=== PATIENT | male | born 1970 | race Caucasian/White ===

== ENCOUNTER → 2021-10-06 07:21 | Outpatient (CLI) | payer OTHER, SELFPAY ==
[2021-10-06 08:50] LABS: Add Manual Diff / Slide Review NO; Basophils Absolute Auto 0 /uL (0-100); Basophils Percent Auto 0.9 % (0-2); Eosinophils Absolute Auto 100 /uL (0-450); Eosinophils Percent Auto 3.4 % (2-4); Hematocrit 42.1 % (41-53); Hemoglobin 14.7 g/dL (13.5-17.5); Lymphocytes Absolute Auto 1400 /uL (1100-4500); Mean Corpuscular HGB Conc 34.8 % (30-36); Mean Corpuscular Hemoglobin 32.6 PG (26-34); Mean Corpuscular Volume 93.5 fL (80-100); Monocytes Absolute Auto 400 /uL (0-900); Monocytes Percent Auto 10.9 % (3-14); Neutrophils Absolute Auto 1400 /uL (1500-7000); Neutrophils Percent Auto 41.8 % (50-75); Platelet Count 199 X10^3/uL (150-400); Red Cell Distribution Width 12.9 % (11.6-14.8); White Blood Cell Count 3.3 X10^3/uL (4.5-11.0)
[2021-10-06 09:30] LABS: Alanine Aminotransferase 27 IU/L (<50); Albumin 4.1 g/dL (3.5-5.0); Albumin Globulin Ratio 1.5 (1.0-2.8); Alkaline Phosphatase 58 U/L (38-126); Aspartate Aminotransferase 37 IU/L (17-59); BUN Creatinine Ratio 24.6 (6-22); Bilirubin Total 0.9 mg/dL (0.2-1.3); Blood Urea Nitrogen 16 mg/dL (9-20); Calcium 8.7 mg/dL (8.4-10.2); Carbon Dioxide 30 mmol/L (22-32); Chloride 102 mmol/L (98-107); Cholesterol 170 mg/dL (140-199); Estimated Glomerular Filt Rate > 60 mL/min (>60); Globulin 2.8 g/dL (1.7-4.1); Glucose 83 mg/dL (70-100); HDL Cholesterol 47 mg/dL (40-60); HEMOLYSIS < 15 (0-50); LDL Cholesterol Calculated 107 mg/dL (<100); Potassium 4.6 mmol/L (3.4-5.1); Sodium 137 mmol/L (137-145); Total Protein 6.9 g/dL (6.3-8.2); Triglycerides 82 mg/dL (35-150)
== END ==
PROVIDERS: Family Provider Family Medicine; PCP Family Medicine; Referring Provider Family Medicine; Visit Provider Family Medicine
DX: E78.00 Pure hypercholesterolemia, unspecified (principal)
CPT/HCPCS: 36415; 80053; 80061; 85025

== ENCOUNTER → 2022-11-27 07:58 | Outpatient (CLI) | payer OTHER, SELFPAY ==
[2022-11-27 10:34] LABS: BUN Creatinine Ratio 17.7 (6-22); Blood Urea Nitrogen 11 mg/dL (9-20); Calcium 9.3 mg/dL (8.4-10.2); Carbon Dioxide 30 mmol/L (22-32); Chloride 98 mmol/L (98-107); Cholesterol 181 mg/dL (140-199); Estimated Glomerular Filt Rate > 60 mL/min (>60); Glucose 83 mg/dL (70-100); HDL Cholesterol 51 mg/dL (40-60); HEMOLYSIS < 15 (0-50); LDL Cholesterol Calculated 113 mg/dL (<100); Potassium 4.4 mmol/L (3.4-5.1); Sodium 135 mmol/L (137-145); Triglycerides 86 mg/dL (35-150)
== END ==
PROVIDERS: Family Provider Family Medicine; PCP Family Medicine; Referring Provider Family Medicine; Visit Provider Family Medicine
DX: E78.00 Pure hypercholesterolemia, unspecified (principal)
CPT/HCPCS: 36415; 80048; 80061

== ENCOUNTER 2022-12-02 18:24 | Emergency (ER) | payer OTHER, SELFPAY ==
[2022-12-02 18:34] VITALS: BP 156/89; PULSE 101; RESP 20; TEMP 37.4; O2SAT 100; BMI 22.4
--- NOTE | 2022-12-02 18:42 | DI.RAD.S_ITS ---
PROCEDURE: XR CHEST 2V INDICATIONS: cough x 7days TECHNIQUE: 2 views of the chest were acquired. COMPARISON: None. FINDINGS: Surgical changes and devices: Lungs and pleura: Lungs are abnormal with bibasilar posterior pneumonia, right slightly greater than left. No pleural effusions or pneumothorax. Mediastinum: Mediastinal contours are normal. Heart size is normal. Bones and chest wall: No suspicious bony abnormalities. Soft tissues appear unremarkable. IMPRESSION: Posterior lung base pneumonia bilaterally, right greater than left. Dictated by: Azael Chisholm M.D. on 12/02/2022 at 20:02 Approved by: Azael Chisholm M.D. on 12/02/2022 at 20:03
--- NOTE | 2022-12-02 18:53 | ED.GENADULT ---
HPI - General Adult General Chief complaint: Upper Respiratory Symptoms Stated complaint: wic sent/wonky heart Time Seen by Provider: 12/02/22 18:35 Source: patient Mode of arrival: Ambulatory History of Present Illness HPI narrative: 52-year-old male who for the past 7-10 days has had a cough and body aches and other respiratory symptoms. Went to the walk-in clinic. During his evaluation there was some concern about an irregular heart rhythm. Patient denies any chest pain. No abdominal pain. Was brought to the emergency department for further evaluation. Related Data Previous Rx's Medication Instructions Recorded benzonatate 100 mg capsule 100 mg PO BID PRN cough #20 caps 11/29/22 fluticasone propionate 50 1 spray intranasal Q12H #16 grams 11/29/22 mcg/actuation nasal spray,suspension (Flonase Allergy Relief) ipratropium bromide 42 mcg (0.06 2 spray intranasal TID 4 days #15 11/29/22 %) nasal spray mL azithromycin 250 mg tablet 250 mg PO DAILY 4 days #4 tabs 12/02/22 Allergies Allergy/AdvReac Type Severity Reaction Status Date / Time No Known Drug Allergies Allergy Verified 12/02/22 18:38 Review of Systems Constitutional Constitutional: Reports system reviewed and no additional complaints, except as documented Cardiovascular Cardiovascular: Reports system reviewed and no additional complaints, except as documented Respiratory Respiratory: Reports system reviewed and no additional complaints, except as documented Gastrointestinal Gastrointestinal: Reports system reviewed and no additional complaints, except as documented Integumentary/Breasts Skin/Breast: Reports system reviewed and no additional complaints, except as documented Neurologic Neurologic: Reports system reviewed and no additional complaints, except as documented Patient History Medical History Physical exam, annual Actinic keratosis due to exposure to sunlight Inflamed skin tag Wart of hand Verruca plantaris Elevated LDL cholesterol level Chronic pain of both knees Family History (Updated 07/06/21 @ 10:07 by Shiv Del Angel DO) Father Stroke Hyperlipidemia Mother No problems noted. Sister Cancer Social History Smoking Status: Never smoker Smoking Status: Never smoker alcohol intake frequency: a few times a month Substance Use Type: does not use Exam Initial Vital Signs Initial Vital Signs: Vital Signs Temperature 99.4 F 12/02/22 18:34 Pulse Rate 101 H 12/02/22 18:34 Respiratory Rate 20 12/02/22 18:34 Blood Pressure 156/89 H 12/02/22 18:34 Pulse Oximetry 100 12/02/22 18:34 Oxygen Delivery Method Room Air 12/02/22 18:34 Const General: cooperative, comfortable and No ill appearing HENMT Head: normal to inspection and normocephalic Resp Effort & Inspection: normal respiratory effort Auscultation: clear to auscultation bilaterally Cardio Rate: regular rate Rhythm: regular rhythm GI Inspection: normal to inspection and non-distended Palpation: soft Skin General: no rashes or lesions noted Neuro General: patient alert, patient awake and moves all extremities Course Orders Ordered: ED Orders 12/02/22 18:35 Covid-19 + FLU A/B + RSV - PCR Stat 12/02/22 18:42 XR chest 2V Stat 12/02/22 18:50 EKG-12 Lead Stat Discontinued Medications Azithromycin (Azithromycin 250 Mg Tablet) 500 mg PO NOW ONE Stop: 12/02/22 20:10 Last Admin: 12/02/22 20:13 Dose: 500 mg Documented By: ELVIN Vital Signs Vital signs: Vital Signs - 8 hr 12/02/22 18:34 12/02/22 19:33 12/02/22 20:00 Temperature 99.4 F Pulse Rate 101 H 99 H 101 H Respiratory Rate 20 26 H 27 H Blood Pressure 156/89 H Pulse Oximetry 100 97 96 Oxygen Delivery Method Room Air 12/02/22 20:10 12/02/22 20:10 Temperature 99 F Pulse Rate 100 H Respiratory Rate 21 Blood Pressure 140/79 Pulse Oximetry 98 Oxygen Delivery Method Room Air Medical Decision Making Lab Data Lab results reviewed: Yes I reviewed the patient's lab results. Labs: Lab Results 12/02/22 Range/Units 18:35 SARS-CoV-2 (PCR) Negative (Negative) Influenza A (RT-PCR) Flu a negative (NEGATIVE) Influenza B (RT-PCR) Flu b negative (NEGATIVE) RSV (PCR) Negative (Negative) Imaging Data Chest x-ray: Radiologist's Impression: PROCEDURE: XR CHEST 2V INDICATIONS: cough x 7days TECHNIQUE: 2 views of the chest were acquired. COMPARISON: None. FINDINGS: Surgical changes and devices: Lungs and pleura: Lungs are abnormal with bibasilar posterior pneumonia, right slightly greater than left. No pleural effusions or pneumothorax. Mediastinum: Mediastinal contours are normal. Heart size is normal. Bones and chest wall: No suspicious bony abnormalities. Soft tissues appear unremarkable. IMPRESSION: Posterior lung base pneumonia bilaterally, right greater than left. ECG Data Interpretation: Sinus rhythm Ventricular rate 96 Normal axis Normal QRS Normal QTC No ST T wave changes MDM Narrative Medical decision making narrative: Patient has had sinus rhythm and not tachycardic since arrival here to the ER. His chest x-ray concerning for pneumonia in this does fit his clinical presentation. We will treat him with antibiotics. First dose was given here. Prescription was sent to the pharmacy of his choice. Not hypoxic. No indication for admission to the hospital. He was given return precautions. He expressed understanding and agreement. Discharge Plan Departure Patient Disposition: Home Clinical Impression: Pneumonia Instructions: DI for Pneumonia -- Adult Activity Restrictions/Additional Instructions: You can take Tylenol/ibuprofen for any body aches or fevers. Your next dose of antibiotics will be 12/03/2022. Return to the emergency department for new or worsening symptoms. Prescriptions: New azithromycin 250 mg tablet 250 mg PO DAILY 4 Days Qty: 4 0RF Rx Instructions: start on day 2 of therapy No Action ipratropium bromide 42 mcg (0.06 %) spray,non-aerosol 2 spray intranasal TID 4 Days Qty: 15 0RF Rx Instructions: administer into each nostril fluticasone propionate [Flonase Allergy Relief] 50 mcg/actuation spray,suspension 1 spray intranasal Q12H Qty: 16 0RF Rx Instructions: administer into each nostril benzonatate 100 mg capsule 100 mg PO BID PRN (Reason: cough) Qty: 20 0RF Referrals: Shiv Del Angel DO [Primary Care Provider] - Stand Alone Forms: Patient Portal/API
[2022-12-02 19:26] LABS: Influenza A - CEPHEID Flu A NEGATIVE (NEGATIVE); Influenza B - CEPHEID Flu B NEGATIVE (NEGATIVE); Respiratory Syncytial Virus Negative (Negative)
[2022-12-02 19:29] LABS: COVID-19 CEPHEID 4-PLEX PCR Negative (Negative)
[2022-12-02 19:33] VITALS: PULSE 99; RESP 26; O2SAT 97
[2022-12-02 20:00] VITALS: PULSE 101; RESP 27; O2SAT 96
[2022-12-02 20:10] VITALS: BP 140/79; PULSE 100; RESP 21; TEMP 37.2; O2SAT 98
[2022-12-02] MEDS: AZITHROMYCIN 250 MG TABLET 500 MG PO (20:13)
== END 2022-12-02 20:18 | disposition home or self-care (01) ==
PROVIDERS: Emergency Provider Emergency Medicine; Family Provider Family Medicine; PCP Family Medicine
DX: J18.9 Pneumonia, unspecified organism (principal); R07.9 Chest pain, unspecified; Z20.822 Contact with and (suspected) exposure to COVID-19
CPT/HCPCS: 0241U; 71046; 93005; 93010; 99283; 99284

== ENCOUNTER 2022-12-09 10:12 | Emergency (ER) | payer OTHER, SELFPAY ==
[2022-12-09] VITALS (8 sets, daily range): BP systolic 116–141; BP diastolic 68; PULSE 59–117; RESP 24; TEMP 37–39.9; O2SAT 95–98
--- NOTE | 2022-12-09 10:41 | ED_ITS ---
HPI - URI/Sore Throat General Chief Complaint: Fever Stated Complaint: sent by [facility] poss pneumnia Time Seen by Provider: 12/09/22 10:41 History of Present Illness HPI Narrative: Patient 52-year-old male without significant past medical history presenting for the 2nd time this week to the ED he has been seen twice a day walk-in clinic diagnosed with pneumonia on December 02 started on a Z-Robinson. He continues to have fever at home 101 he has a current temperature here of 103.8. He is staying hydrated significant decrease in appetite. Last dose of Tylenol or ibuprofen was at 1:00 a.m.. Went to the walk-in clinic he was redirected here for elevated heart rate. He reports that whenever he takes a deep breath he starts coughing can not stop. Frequently he coughs so hard he vomits. He was given cough syrup and other supportive measures. Related Data Previous Rx's Medication Instructions Recorded benzonatate 100 mg capsule 100 mg PO BID PRN cough #20 caps 11/29/22 fluticasone propionate 50 1 spray intranasal Q12H #16 grams 11/29/22 mcg/actuation nasal spray,suspension (Flonase Allergy Relief) codeine 10 mg-guaifenesin 100 mg/5 10 ml PO Q4-6H PRN cough #120 mL 12/06/22 mL oral liquid hydrocodone-homatropine 5 mg-1.5 5 ml PO Q6H PRN cough #100 mL 12/09/22 mg/5 mL (5 mL) oral syrup levofloxacin 750 mg tablet 750 mg PO DAILY 5 days #5 tabs 12/09/22 prednisone 20 mg tablet 40 mg (2 x 20 mg) PO DAILY #10 tabs 12/09/22 Allergies Allergy/AdvReac Type Severity Reaction Status Date / Time No Known Drug Allergies Allergy Verified 12/06/22 11:13 Review of Systems Review of Systems ROS Unobtainable: All systems reviewed & are unremarkable except as noted in HPI and below Patient History Medical History Physical exam, annual Actinic keratosis due to exposure to sunlight Inflamed skin tag Wart of hand Verruca plantaris Elevated LDL cholesterol level Chronic pain of both knees Family History (Updated 07/06/21 @ 10:07 by Shiv Del Angel DO) Father Stroke Hyperlipidemia Mother No problems noted. Sister Cancer Social History Smoking Status: Never smoker Smoking Status: Never smoker alcohol intake frequency: a few times a month Substance Use Type: does not use Exam Initial Vital Signs Initial Vital Signs: Vital Signs Temperature 103.8 F H 12/09/22 10:20 Pulse Rate 117 H 12/09/22 10:20 Respiratory Rate 24 12/09/22 10:20 Blood Pressure 141/68 H 12/09/22 10:20 Pulse Oximetry 97 12/09/22 10:20 Oxygen Delivery Method Room Air 12/09/22 10:20 GENERAL: Alert 52-year-old male appears younger than stated age HEENT: Head atraumatic,EOMI, pupils reactive, face symmetric, moist mucous membranes CARDIOVASCULAR: Tachycardic regular no murmurs RESPIRATORY: Crackles at bases significant wheezing no conversational dyspnea no tachypnea ABDOMEN: Soft, nontender. Normoactive bowel sounds all 4 quadrants. No guarding or rebound. EXTREMITIES: Normal range of motion, no clubbing or edema. Neurovascularly intact NEUROLOGICAL: Alert and oriented x4.Normal gait and speech. SKIN: Warm, dry, no laceration, no petechiae, no rashes or lesions. Course Orders Ordered: ED Orders 12/09/22 10:37 Complete Blood Count AUTO DIFF Stat Comprehensive Metabolic Panel Stat Lactate (Lactic Acid) Stat Lipase Stat PTT Partial Thromboplastin Hill Stat Procalcitonin Stat Prothrombin Time INR Stat Respiratory Panel (Film Array) Stat Troponin & CK Cardiac Panel Stat 12/09/22 10:41 XR chest 1V Stat EKG-12 Lead Stat RT Consult Eval and Treat NOW 12/09/22 11:00 Blood Culture Stat Discontinued Medications Acetaminophen (Acetaminophen 325 Mg Tablet) 975 mg PO NOW ONE Stop: 12/09/22 10:44 Last Admin: 12/09/22 11:03 Dose: 975 mg Documented By: JCARLOS Sodium Chloride (Normal Saline 0.9%) 1,000 mls @ 1,000 mls/hr IV BOLUS ONE Stop: 12/09/22 11:40 Last Infusion: 12/09/22 12:21 Dose: Infused Documented By: Admin: 12/09/22 11:04 Dose: 1,000 mls/hr Documented By: JCARLOS Levofloxacin (Levaquin) 750 mg in 150 mls @ 100 mls/hr IV NOW ONE Stop: 12/09/22 12:23 Last Infusion: 12/09/22 12:39 Dose: Infused Documented By: Admin: 12/09/22 11:03 Dose: 100 mls/hr Documented By: JCARLOS Ketorolac Tromethamine (Ketorolac 30 Mg/Ml Vial) 15 mg IV NOW ONE Stop: 12/09/22 10:44 Last Admin: 12/09/22 11:03 Dose: 15 mg Documented By: JCARLOS Methylprednisolone (Methylprednisolone 125 Mg/2 Ml Vial) 125 mg IV NOW ONE Stop: 12/09/22 12:10 Last Admin: 12/09/22 12:39 Dose: 125 mg Documented By: KULWINDER Ondansetron HCl (Ondansetron 4 Mg/2 Ml Inj) 4 mg IV NOW PRN PRN Reason: Nausea And Vomiting Last Admin: 12/09/22 11:06 Dose: 4 mg Documented By: JCARLOS Ondansetron HCl (Ondansetron 4 Mg Odt) 4 mg SL NOW PRN PRN Reason: Nausea And Vomiting Vital Signs Vital signs: Vital Signs - 8 hr 12/09/22 10:20 12/09/22 11:00 12/09/22 11:30 Temperature 103.8 F H Pulse Rate 117 H 107 H 105 H Respiratory Rate 24 Blood Pressure 141/68 H Pulse Oximetry 97 98 96 Oxygen Delivery Method Room Air 12/09/22 12:00 12/09/22 12:22 12/09/22 12:22 Temperature 100.7 F H 100.7 F H Pulse Rate 59 L Respiratory Rate Blood Pressure Pulse Oximetry 96 Oxygen Delivery Method 12/09/22 12:30 12/09/22 12:44 12/09/22 12:45 Temperature Pulse Rate 91 H 90 Respiratory Rate Blood Pressure 116/68 Pulse Oximetry 96 95 Oxygen Delivery Method 12/09/22 12:45 Temperature 98.6 F Pulse Rate 90 Respiratory Rate Blood Pressure Pulse Oximetry 95 Oxygen Delivery Method Room Air MDM - URI/Sore Throat Lab Data 12/09/22 10:37 12/09/22 10:37 Labs: Lab Results 12/09/22 Range/Units 10:37 WBC 16.4 H (4.5-11.0) X10^3/uL RBC 4.56 (4.5-5.9) X10^6/uL Hgb 14.6 (13.5-17.5) g/dL Hct 42.6 (41-53) % MCV 93.4 (80-100) fL MCH 32.0 (26-34) PG MCHC 34.2 (30-36) % RDW 12.7 (11.6-14.8) % Plt Count 339 (150-400) X10^3/uL Neut % (Auto) 89.8 H (50-75) % Lymph % (Auto) 5.4 L (25-40) % Emanuel % (Auto) 4.2 (3-14) % Eos % (Auto) 0.2 L (2-4) % Baso % (Auto) 0.4 (0-2) % Neut # (Auto) 14661 H (7379-6144) /uL Lymph # (Auto) 900 L (2346-0755) /uL Emanuel # (Auto) 700 (0-900) /uL Eos # (Auto) 0 (0-450) /uL Baso # (Auto) 100 (0-100) /uL PT 17.0 H (10.1-12.7) SECONDS INR 1.5 H (0.9-1.3) APTT 32 (26-36) SECONDS Sodium 135 L (137-145) mmol/L Potassium 4.2 (3.4-5.1) mmol/L Chloride 97 L (98-107) mmol/L Carbon Dioxide 28 (22-32) mmol/L BUN 16 (9-20) mg/dL Creatinine 0.60 L (0.66-1.25) mg/dL Estimated GFR > 60 (>60) mL/min BUN/Creatinine Ratio 26.7 H (6-22) Glucose 103 H (70-100) mg/dL Lactate 1.3 (0.7-2.1) mmol/L Calcium 9.6 (8.4-10.2) mg/dL Total Bilirubin 1.0 (0.2-1.3) mg/dL AST 32 (17-59) IU/L ALT 37 (<50) IU/L Alkaline Phosphatase 100 (38-126) U/L Total Creatine Kinase 78 (55-170) U/L Troponin I < 0.012 (0.01-0.034) ng/mL Total Protein 8.4 H (6.3-8.2) g/dL Albumin 4.2 (3.5-5.0) g/dL Globulin 4.2 H (1.7-4.1) g/dL Albumin/Globulin Ratio 1.0 (1.0-2.8) Lipase 29 (23-300) U/L Procalcitonin 0.08 (<0.5) ng/mL Chlamy pneumoniae PCR Not detected (Not Detect) Adenovirus (PCR) Not detected (Not Detect) B.parapertussis DNA PCR Not detected (Not Detecte) Coronavirus OC43 (PCR) Not detected (Not Detect) Coronavirus HKU1 (PCR) Not detected (Not Detect) Coronavirus 229E (PCR) Not detected (Not Detect) SARS-CoV-2 (PCR) Not detected (Not Detecte) Coronavirus NL63 (PCR) Not detected (Not Detect) Human Metapneumovir PCR Not detected (Not Detect) Influenza Type A (PCR) Not detected (Not Detect) Influenza Type B (PCR) Not detected (Not Detect) M. pneumoniae (PCR) Not detected (Not Detect) Parainfluenza 1 (PCR) Not detected (Not Detect) Parainfluenza 2 (PCR) Not detected (Not Detect) Parainfluenza 3 (PCR) Not detected (Not Detect) Parainfluenza 4 (PCR) Not detected (Not Detect) RSV (PCR) Not detected (Not Detect) Entero/Rhino (PCR) Detected H (Not Detect) Imaging Data Chest x-ray: Radiologist's Impression: PROCEDURE: XR CHEST 1V INDICATIONS: suspected sepsis TECHNIQUE: One view of the chest was acquired. COMPARISON: [facility], , XR CHEST 2V, 12/02/2022, 18:54. FINDINGS: Surgical changes and devices: None. Lungs and pleura: There is moderate airspace opacity at the right lung base. No pleural effusions or pneumothorax. Mediastinum: Mediastinal contours appear normal. Heart size is normal. Bones and chest wall: No suspicious bony lesions. Overlying soft tissues appear unremarkable. IMPRESSION: Right lung base pneumonia. Continued plain film surveillance is recommended to ensure resolution, and to exclude underlying or central malignancy. Dictated by: Madina Smart M.D. on 12/09/2022 at 11:16 ECG Data Interpretation: Sinus tachycardia rate 111 AK interval 148 QRS [address] changes T-wave inversions MDM Narrative Medical decision making narrative: Patient 52-year-old male recent pneumonia finish Z-Robinson presenting today with fever and cough. X-ray confirms continued right base pneumonia he has leukocytosis of 16. Normal lactate normal procalcitonin no electrolyte abnormalities. Viral panel positive for entero/rhinovirus. At this time not hypoxic no longer febrile clinically appears well. Seems reasonable to change antibiotic to Levaquin he was given 1 dose IV in the ED. and also has a virus which is likely continued symptoms blood cultures pending this time seems reasonable to discharge. Discharge Plan Departure Patient Disposition: Home Clinical Impression: Pneumonia, Upper respiratory infection Instructions: DI for Pneumonia -- Adult, DI for Viral Upper Respiratory Infection -- Adult Activity Restrictions/Additional Instructions: *You have been diagnosed with pneumonia, and entero/rhinovirus *What to do: Increase fluids as tolerated fever control. May increase diet as tolerated as well. Hopefully antibiotics and steroids will help you feel better *Continue to take medications as directed-->[facility] [place] Levaquin 750 mg once a day for 5 days Prednisone 40 mg once a day for 5 days Hydrocodone/homatropine 5 ML every 6 hours if needed for cough do not combine with codeine and guaifenesin your last cough syrup *Follow up with your primary care provider in 2-3 days or call [phone] *Return to ER if you should have inability to tolerate fluids increased shortness of breath or any new, worsening or concerning symptoms CONTROLLED SUBSTANCE DISCHARGE (Narcotoic/benzodiazepine/Flexeril/Phenergan) 1. You have been prescribed narcotic medications, it does have acetaminophen/Tylenol/paracetamol in it, DO NOT TAKE MORE THAN 4,00mg in 24 hours of Tylenol. TRAMADOL DOES NOT CONTAIN TYLENOL 2. Please understand that we cannot provide further refills of narcotics, benzodiazepines or controlled substances through the ED and her pain management will need to be through your provider. 3. While on these medications you cannot drive or operate heavy machinery. 4. You cannot sign legal documents or perform any duties such as this. 5. As long as you're taking opiate pain medications he should also be taking a stool softener such as Colace, Dulcolax, MiraLAX or prune juice, to help avoid constipation. Prescriptions: New hydrocodone-homatropine 5-1.5 mg/5 mL (5 mL) syrup 5 ml PO Q6H PRN (Reason: cough) Qty: 100 0RF prednisone 20 mg tablet 40 mg PO DAILY Qty: 10 0RF levofloxacin 750 mg tablet 750 mg PO DAILY 5 Days Qty: 5 0RF No Action fluticasone propionate [Flonase Allergy Relief] 50 mcg/actuation spray,suspension 1 spray intranasal Q12H Qty: 16 0RF Rx Instructions: administer into each nostril benzonatate 100 mg capsule 100 mg PO BID PRN (Reason: cough) Qty: 20 0RF codeine-guaifenesin 10-100 mg/5 mL liquid 10 ml PO Q4-6H PRN (Reason: cough) Qty: 120 0RF Referrals: Shiv Del Angel DO [Primary Care Provider] - Stand Alone Forms: Patient Portal/API
[2022-12-09 10:52] LABS: Add Manual Diff / Slide Review NO; Basophils Absolute Auto 100 /uL (0-100); Basophils Percent Auto 0.4 % (0-2); Eosinophils Absolute Auto 0 /uL (0-450); Eosinophils Percent Auto 0.2 % (2-4); Hematocrit 42.6 % (41-53); Hemoglobin 14.6 g/dL (13.5-17.5); INR 1.5 (0.9-1.3); Lymphocytes Absolute Auto 900 /uL (1100-4500); Lymphocytes Percent Auto 5.4 % (25-40); Mean Corpuscular HGB Conc 34.2 % (30-36); Mean Corpuscular Volume 93.4 fL (80-100); Monocytes Absolute Auto 700 /uL (0-900); Monocytes Percent Auto 4.2 % (3-14); Neutrophils Absolute Auto 14700 /uL (1500-7000); Neutrophils Percent Auto 89.8 % (50-75); Platelet Count 339 X10^3/uL (150-400); Red Blood Cell Count 4.56 X10^6/uL (4.5-5.9); Red Cell Distribution Width 12.7 % (11.6-14.8); White Blood Cell Count 16.4 X10^3/uL (4.5-11.0)
[2022-12-09 10:54] LABS: PTT Partial Thromboplastin Tim 32 SECONDS (26-36)
[2022-12-09 10:56] LABS: Alanine Aminotransferase 37 IU/L (<50); Albumin 4.2 g/dL (3.5-5.0); Alkaline Phosphatase 100 U/L (38-126); Aspartate Aminotransferase 32 IU/L (17-59); BUN Creatinine Ratio 26.7 (6-22); Blood Urea Nitrogen 16 mg/dL (9-20); Calcium 9.6 mg/dL (8.4-10.2); Carbon Dioxide 28 mmol/L (22-32); Chloride 97 mmol/L (98-107); Creatine Kinase 78 U/L (55-170); Estimated Glomerular Filt Rate > 60 mL/min (>60); Globulin 4.2 g/dL (1.7-4.1); Glucose 103 mg/dL (70-100); HEMOLYSIS < 15 (0-50); Lactate (Lactic Acid) 1.3 mmol/L (0.7-2.1); Lipase 29 U/L (23-300); Potassium 4.2 mmol/L (3.4-5.1); Sodium 135 mmol/L (137-145); Total Protein 8.4 g/dL (6.3-8.2)
[2022-12-09] MEDS: levoFLOXacin 750 MG/150 ML PIGGYBACK 100 MG IV (11:03)
[2022-12-09] MEDS: ACETAMINOPHEN 325 MG TABLET 975 MG PO (11:03)
[2022-12-09] MEDS: KETOROLAC 30 MG/ML VIAL 15 MG IV (11:03)
[2022-12-09] MEDS: SODIUM CHLORIDE 0.9% 1,000 ML 1000 ML IV (11:04)
[2022-12-09] MEDS: ONDANSETRON 4 MG/2 ML INJ IV (11:06)
[2022-12-09 11:08] LABS: Troponin I < 0.012 ng/mL (0.01-0.034)
[2022-12-09 11:13] LABS: Procalcitonin 0.08 ng/mL (<0.5)
[2022-12-09 11:39] LABS: Adenovirus Not Detected (Not Detect); B. parapertussis Not Detected (Not Detecte); Bordetella pertussis Not Detected (Not Detect); Chlamydophila pneumoniae Not Detected (Not Detect); Coronavirus 229E Not Detected (Not Detect); Coronavirus HKU1 Not Detected (Not Detect); Coronavirus NL 63 Not Detected (Not Detect); Coronavirus OC43 Not Detected (Not Detect); Human Metapneumovirus Not Detected (Not Detect); Human Rhinovirus/Enterovirus Detected (Not Detect); Influenza A Not Detected (Not Detect); Influenza B Not Detected (Not Detect); Mycoplasma pneumoniae Not Detected (Not Detect); Parainfluenza Virus 1 Not Detected (Not Detect); Parainfluenza Virus 2 Not Detected (Not Detect); Parainfluenza Virus 3 Not Detected (Not Detect); Parainfluenza Virus 4 Not Detected (Not Detect); Respiratory Syncytial Virus Not Detected (Not Detect); SARS- CoV-2 Not Detected (Not Detecte)
[2022-12-09] MEDS: methylPREDNISolone 125 MG/2 ML VIAL IV (12:39)
== END 2022-12-09 12:57 | disposition home or self-care (01) ==
PROVIDERS: Emergency Provider Emergency Medicine; Family Provider Family Medicine; PCP Family Medicine
DX: J18.9 Pneumonia, unspecified organism (principal); J06.9 Acute upper respiratory infection, unspecified; B34.8 Other viral infections of unspecified site; Z20.822 Contact with and (suspected) exposure to COVID-19
CPT/HCPCS: 36415; 71045; 80053; 82550; 83605; 83690; 84145; 84484; 85025; 85610; 85730; 87040; 87633; 93005; 96365; 96366; 96375; 99284; J1885; J1956; J2405; J2930

== ENCOUNTER → 2022-12-15 11:12 | Outpatient (CLI) | payer OTHER, SELFPAY ==
--- NOTE | 2022-12-15 11:14 | DI.RAD.S_ITS ---
PROCEDURE: XR CHEST 2V INDICATIONS: f/u pneumonia - confirm resolution TECHNIQUE: 2 views of the chest were acquired. COMPARISON: [facility], CR, XR CHEST 1V, 12/09/2022, 10:44. [facility], CR, XR CHEST 2V, 12/02/2022, 18:54. FINDINGS: Surgical changes and devices: None. Lungs and pleura: Right lower lobe infiltrate has resolved. Lungs are clear. No pleural effusions or pneumothorax. Mediastinum: Mediastinal contours are normal. Heart size is normal. Bones and chest wall: No suspicious bony abnormalities. Soft tissues appear unremarkable. IMPRESSION: No acute cardiopulmonary abnormality is seen. Dictated by: Eugenia Espinoza M.D. on 12/15/2022 at 11:55 Approved by: Eugenia Espinoza M.D. on 12/15/2022 at 11:57
== END ==
PROVIDERS: Family Provider Family Medicine; PCP Family Medicine; Referring Provider Physician Assistant; Visit Provider Physician Assistant
DX: J18.9 Pneumonia, unspecified organism (principal)
CPT/HCPCS: 71046

== ENCOUNTER → 2024-01-10 07:03 | Outpatient (CLI) | payer OTHER, SELFPAY ==
[2024-01-10 08:16] LABS: BUN Creatinine Ratio 22.7 (6-22); Blood Urea Nitrogen 17 mg/dL (9-20); Calcium 9.6 mg/dL (8.4-10.2); Carbon Dioxide 28 mmol/L (22-32); Chloride 100 mmol/L (98-107); Cholesterol 215 mg/dL (140-199); Estimated Glomerular Filt Rate > 60 mL/min (>60); Glucose 91 mg/dL (70-100); HDL Cholesterol 65 mg/dL (40-60); HEMOLYSIS < 15 (0-50); LDL Cholesterol Calculated 141 mg/dL (<100); Potassium 4.5 mmol/L (3.4-5.1); Sodium 135 mmol/L (137-145); Triglycerides 43 mg/dL (35-150)
[2024-01-10 08:44] LABS: Prostate Specific Antigen Scrn 0.934 ng/mL (0.1-4.0)
== END ==
PROVIDERS: Family Provider Family Medicine; PCP Family Medicine; Referring Provider Family Medicine; Visit Provider Family Medicine
DX: E78.00 Pure hypercholesterolemia, unspecified (principal); Z12.5 Encounter for screening for malignant neoplasm of prostate
CPT/HCPCS: 36415; 80048; 80061; G0103

== ENCOUNTER → 2024-01-17 07:10 | Outpatient (CLI) | payer OTHER, SELFPAY ==
[2024-01-17 08:50] LABS: Cholesterol 174 mg/dL (140-199); HDL Cholesterol 57 mg/dL (40-60); LDL Cholesterol Calculated 101 mg/dL (<100); Triglycerides 78 mg/dL (35-150)
== END ==
PROVIDERS: Family Provider Family Medicine; PCP Family Medicine; Referring Provider Family Medicine; Visit Provider Family Medicine
DX: E78.00 Pure hypercholesterolemia, unspecified (principal)
CPT/HCPCS: 36415; 80061

== ENCOUNTER 2024-03-11 08:15 | Outpatient (RCR) | payer OTHER, SELFPAY ==
--- NOTE | 2024-03-06 17:05 | PT.OIE ---
Current Diagnoses Other chronic pain (03/06/24) Pain in right shoulder (03/06/24) Past Medical History (Last Updated 01/14/24 @ 16:06 by Shiv Del Angel DO) Actinic keratosis due to exposure to sunlight Chronic pain of both knees Chronic right shoulder pain Elevated LDL cholesterol level Inflamed skin tag Mild hypercholesterolemia Physical exam, annual Verruca plantaris Wart of hand Visit Care Team Role Provider Type Shiv Del Angel DO Attending Provider Physician Family Provider Primary Care Provider Referring Provider Specialty: [facility] Address: [address] [place] [address] Email: Physical Therapy Initial Evaluation PT-OP-A Visit Information Start: 03/05/24 16:57 Freq: Status: Active Protocol: Document 03/06/24 13:02 SAK (Rec: 03/06/24 13:51 SAK [id number]) Out-Patient Physical Therapy Visit Information Visit Information Visit Type Initial Evaluation Visit Start Time 13:03 Visit Stop Time 14:31 Visit Number 1 Evaluation Information Evaluation Date 03/06/24 PT-OP-B Current Condition Start: 03/05/24 16:57 Freq: Status: Active Protocol: Document 03/06/24 13:02 SAK (Rec: 03/06/24 13:51 SAK [id number]) Current Condition History of Current Condition Onset Date 2 years Current Complaints right shoulder pain History of Current Condition gradual onset, possibly due to throwinhg baseball or footballhard. Painful yoga, difficult going from plank down to pushup. In past would just modify activities and it would mostly go away. For past month doing light yoga, stopped doing lap swimming, still not improving, stopped doing weight lifting. Primarily freestyle, does some other strokes. Usual exercise, running, weights, yoga, swim. Denies n/t. Also reports when doing bicep curls was painful in neutral position; able to do carefully without pain thumbs up position. Prior Treatments and Tests doesnt think any imaging for shoulder. No other treatment. PT-OP-C Subjective Start: 03/05/24 16:57 Freq: Status: Active Protocol: Document 03/06/24 13:02 SAK (Rec: 03/06/24 17:05 SAK [id number]) Patient Questionnaires Quick Dash- Upper Extremity Quick Dash UE Score 18 OP-PT Pain Assessment Location right shoulder Pain Location Details 3-8/10 Scale Used Numeric (0 - 10) PT-OP-E Functional Tests Start: 03/05/24 16:57 Freq: Status: Active Protocol: Document 03/06/24 13:02 SAK (Rec: 03/06/24 17:03 SAK [id number]) Functional Tests Apley's Scratch Test Action 1- Left posterior shoulder Action 1- Right lateral shoulder Action 2- Left T2 Action 2- Right C6 Action 3- Left T4 Action 3- Right T10 PT-OP-F Manual Assessment Start: 03/05/24 16:57 Freq: Status: Active Protocol: Document 03/06/24 13:02 SAK (Rec: 03/06/24 17:03 [facility] [id number]) Manual Assessments Joint Mobility Assessment Joint Mobility Assessment decreased inferior and posterior glide right GH PT-OP-H Neuro Start: 03/05/24 16:57 Freq: Status: Active Protocol: Document 03/06/24 13:02 SAK (Rec: 03/06/24 17:03 [facility] [id number]) Sensation Evaluation Gross Sensation Gross Sensation WNL PT-OP-J Posture/Palpation/Skin Start: 03/05/24 16:57 Freq: Status: Active Protocol: Document 03/06/24 13:02 SAK (Rec: 03/06/24 13:51 SAK [id number]) Posture Evaluation Position Sitting Head/C-Spine Posture Forward Head T-Spine Posture Increased Kyphosis Shoulder Posture (L) Rounded,(R) Rounded Scapula Posture (L) Neutral,(R) Neutral Comments Posture Comments Sternoclavicular joint right posterior related to left. Palpation Assessment Location rc Palpation Details min tenderness PT-OP-K Range of Motion Start: 03/05/24 16:57 Freq: Status: Active Protocol: Document 03/06/24 13:02 SAK (Rec: 03/06/24 17:03 SAK [id number]) Cervical Spine Range of Motion Cervical Spine Active Flexion 55 Rotation Left 55 Rotation Right 60 Lateral Flexion Left 25 Lateral Flexion Right 20 ROM Limitations Soft Tissue Tightness Shoulder Goniometric Range of Motion Shoulder Right Flexion 165 Abduction 170 External Rotation at 45 degrees 80 Abduction Internal Rotation Behind Back (text) T4 Left Shoulder ROM WFL Yes Internal Rotation Behind Back (text) T4 PT-OP-L Special Tests Start: 03/05/24 16:57 Freq: Status: Active Protocol: Document 03/06/24 13:02 [facility] (Rec: 03/06/24 17:03 [facility] [id number]) Special Tests Shoulder Special Tests Russo Denis Impingement Test Results + Elevation Impingement Test Results + Drop Arm Rotator Cuff Test Results - PT-OP-M Strength Start: 03/05/24 16:57 Freq: Status: Active Protocol: Document 03/06/24 13:02 [facility] (Rec: 03/06/24 17:03 [facility] [id number]) Shoulder Strength Shoulder Manual Muscle Testing Right Flexion 4+ Good+ Extension 4- Good- Abduction (C5) 4+ Good+ External Rotation 4- Good- Internal Rotation 4- Good- Left Flexion 5 Normal Extension 4 Good Abduction (C5) 5 Normal External Rotation 4 Good Internal Rotation 4+ Good+ Elbow/Forearm Strength Elbow and Forearm Manual Muscle Testing Right Flexion (C6) 4+ Good+ Extension (C7) 5 Normal Left Flexion (C6) 5 Normal Extension (C7) 5 Normal PT-OP-Q Treatments Start: 03/05/24 16:57 Freq: Status: Active Protocol: Document 03/06/24 13:02 [facility] (Rec: 03/06/24 17:03 [facility] [id number]) Self-Care/Home Management Treatment Education Patient Education Home Exercise Program,Pain Management,Posture Other Education issued written HO PT-OP-T Assessment and Plan Start: 03/05/24 16:57 Freq: Status: Active Protocol: Document 03/06/24 13:02 [facility] (Rec: 03/06/24 13:51 [facility] [id number]) Physical Therapy Assessment Rehab Potential Rehabilitation Potential Good Evaluation Complexity Number of Personal Factors/Comorbidities 0 Number of Body Systems Impaired 1-2 Clinical Presentation at Evaluation Evolving Impairments Impairments Functional Activities,Pain, Soft Tissue Mobility,Strength Goals Three Impairment weakness right shoulder Short Term Goal (STG) Instruct in individualized progressive HEP for purposes of strengthening right shoulder girdle STG Duration 03/22/24 Starch Cooker Goal (LTG) Patient to be independent and compliant with HEP and demonstrate improvement in right shoulder strength all muscle groups to 5/5 to help him return to prior level of right shoulder function LTG Duration 04/20/24 Two Impairment ROM; decreased ability to reach behind his back Starch Cooker Goal (LTG) Improve patient ability to reach behind his back to same as left as measure of improved function right shoulder LTG Duration 04/20/24 One Impairment activity intolerance Starch Cooker Goal (LTG) Patient will be able to resume swimming, throwing, and yoga without an increase in pain LTG Duration 04/20/24 Assessment Summary Assessment Patient presents to PT with function-limiting pain in his right shoulder of a chronic nature, but recent exacerbation with no known reason with limitations in ability to do usual recreational and fitness activities including yoga and swimming. Previously modification of activity for a brief period would be helpful but over the past month has not helped and patient reports constant ache, with pain increasing with the above activities. Unable to throw without severe pain, and is limited in his ability to reach behind his back. Evaluation reveals weakness right shoulder in both internal and external rotation , and poterior chain musculature including rhomboids, lats, and lower trapezius. He also has decreased posterior and inferior glide in his glenohumeral joint. Drop arm test negative but positive impingement tests. Feel he would benefit from PT for instrsuction in therapeutic exercises, evaluation of technique for yoga and swimming, manual techniques for improved GH mobility, and possibly modalities to decrease pain and promote healing. Physical Therapy Plan Frequency and Duration Frequency of Treatment 2x/Week Duration of treatment (weeks) 6 Plan of Care Start Date 03/06/24 Plan of Care End Date 04/20/24 Therapeutic Interventions Therapeutic Interventions Home Exercise Program,Joint Mobilizations,Manual Therapy, Patient/Caregiver Education, Self-Care/Home Management,Soft Tissue Mobilization,Taping, Therapeutic Activities, Therapeutic Exercises Modalities Cold Pack/Ice Massage,Electric Stimulation,Hot Packs, Infrared Therapy,Iontophoresis ,Ultrasound Next Visit Focus/Plan Next Note Type Treatment Note Next Visit Plan REview HEP, supine foam roller shoulder ed, scapular mob and GH mob as indicated especialy post glide, wand ex and MWM for shoulder IR. Modalities PRN.
--- NOTE | 2024-03-06 17:06 | PT.OPPOC ---
Physical, Occupational & Speech Therapy At [facility] Current Diagnoses Other chronic pain (03/06/24) Pain in right shoulder (03/06/24) Visit Care Team Role Provider Type Shiv Del Angel DO Attending Provider Physician Family Provider Primary Care Provider Referring Provider Specialty: Family Practice Address: [address] [place] [address], [facility] Email: Plan Of Care PT-OP-B Current Condition Start: 03/05/24 16:57 Freq: Status: Active Protocol: Document 03/06/24 13:02 [facility] (Rec: 03/06/24 13:51 [facility] [id number]) Current Condition History of Current Condition Onset Date 2 years Current Complaints right shoulder pain History of Current Condition gradual onset, possibly due to throwinhg baseball or footballhard. Painful yoga, difficult going from plank down to pushup. In past would just modify activities and it would mostly go away. For past month doing light yoga, stopped doing lap swimming, still not improving, stopped doing weight lifting. Primarily freestyle, does some other strokes. Usual exercise, running, weights, yoga, swim. Denies n/t. Also reports when doing bicep curls was painful in neutral position; able to do carefully without pain thumbs up position. Prior Treatments and Tests doesnt think any imaging for shoulder. No other treatment. PT-OP-T Assessment and Plan Start: 03/05/24 16:57 Freq: Status: Active Protocol: Document 03/06/24 13:02 [facility] (Rec: 03/06/24 13:51 [facility] [id number]) Physical Therapy Assessment Rehab Potential Rehabilitation Potential Good Evaluation Complexity Number of Personal Factors/Comorbidities 0 Number of Body Systems Impaired 1-2 Clinical Presentation at Evaluation Evolving Impairments Impairments Functional Activities,Pain, Soft Tissue Mobility,Strength Goals Three Impairment weakness right shoulder Short Term Goal (STG) Instruct in individualized progressive HEP for purposes of strengthening right shoulder girdle STG Duration 03/22/24 [place]yer Goal (LTG) Patient to be independent and compliant with HEP and demonstrate improvement in right shoulder strength all muscle groups to 5/5 to help him return to prior level of right shoulder function LTG Duration 04/20/24 Two Impairment ROM; decreased ability to reach behind his back Shelter Goal (LTG) Improve patient ability to reach behind his back to same as left as measure of improved function right shoulder LTG Duration 04/20/24 One Impairment activity intolerance Shelter Goal (LTG) Patient will be able to resume swimming, throwing, and yoga without an increase in pain LTG Duration 04/20/24 Assessment Summary Assessment Patient presents to PT with function-limiting pain in his right shoulder of a chronic nature, but recent exacerbation with no known reason with limitations in ability to do usual recreational and fitness activities including yoga and swimming. Previously modification of activity for a brief period would be helpful but over the past month has not helped and patient reports constant ache, with pain increasing with the above activities. Unable to throw without severe pain, and is limited in his ability to reach behind his back. Evaluation reveals weakness right shoulder in both internal and external rotation , and poterior chain musculature including rhomboids, lats, and lower trapezius. He also has decreased posterior and inferior glide in his glenohumeral joint. Drop arm test negative but positive impingement tests. Feel he would benefit from PT for instrsuction in therapeutic exercises, evaluation of technique for yoga and swimming, manual techniques for improved GH mobility, and possibly modalities to decrease pain and promote healing. Physical Therapy Plan Frequency and Duration Frequency of Treatment 2x/Week Duration of treatment (weeks) 6 Plan of Care Start Date 03/06/24 Plan of Care End Date 04/20/24 Therapeutic Interventions Therapeutic Interventions Home Exercise Program,Joint Mobilizations,Manual Therapy, Patient/Caregiver Education, Self-Care/Home Management,Soft Tissue Mobilization,Taping, Therapeutic Activities, Therapeutic Exercises Modalities Cold Pack/Ice Massage,Electric Stimulation,Hot Packs, Infrared Therapy,Iontophoresis ,Ultrasound Next Visit Focus/Plan Next Note Type Treatment Note Next Visit Plan REview HEP, supine foam roller shoulder ed, scapular mob and GH mob as indicated especialy post glide, wand ex and MWM for shoulder IR. Modalities PRN. Plan of Care Dates Plan of Care Start Date 03/06/24 Plan of Care End Date 04/20/24 Electronically Signed by: Pearl Thomas, PT 03/06/24 4642 If you are in agreement with this Plan of Care, please return a signed and dated copy. I have reviewed this Plan of Care and certify that the skilled therapy services above are required to meet the patient?s needs. Physician Signature Date Printed Name and Credentials Clinical Instructor Signature Printed Name and Credentials
--- NOTE | 2024-03-11 09:09 | PT.OTN ---
Current Diagnoses Other chronic pain (03/11/24) Pain in right shoulder (03/11/24) Physical Therapy Treatment Note PT-OP-A Visit Information Start: 03/05/24 16:57 Freq: Status: Active Protocol: Document 03/11/24 08:12 SAK (Rec: 03/11/24 09:08 [facility] [id number]) Out-Patient Physical Therapy Visit Information Visit Information Visit Type Treatment Note Visit Start Time 08:15 Visit Stop Time 08:58 Visit Number 2 Evaluation Information Evaluation Date 03/06/24 PT-OP-B Current Condition Start: 03/05/24 16:57 Freq: Status: Active Protocol: Document 03/11/24 08:12 SAK (Rec: 03/11/24 09:08 [facility] [id number]) Current Condition History of Current Condition Onset Date 2 years Current Complaints right shoulder pain History of Current Condition gradual onset, possibly due to throwinhg baseball or footballhard. Painful yoga, difficult going from plank down to pushup. In past would just modify activities and it would mostly go away. For past month doing light yoga, stopped doing lap swimming, still not improving, stopped doing weight lifting. Primarily freestyle, does some other strokes. Usual exercise, running, weights, yoga, swim. Denies n/t. Also reports when doing bicep curls was painful in neutral position; able to do carefully without pain thumbs up position. Prior Treatments and Tests doesnt think any imaging for shoulder. No other treatment. PT-OP-C Subjective Start: 03/05/24 16:57 Freq: Status: Active Protocol: Document 03/11/24 08:12 [facility] (Rec: 03/11/24 09:08 [facility] [id number]) OP-PT Subjective Patient Comments Patient Comments Swam for the first time on Sunday, took it easy, at the time felt it, yesterday sore ( maybe miuscle soreness). Has done the exercises twice without difficulty. PT-OP-E Functional Tests Start: 03/05/24 16:57 Freq: Status: Active Protocol: Document 03/06/24 13:02 SAK (Rec: 03/06/24 17:03 [facility] [id number]) Functional Tests Apley's Scratch Test Action 1- Left posterior shoulder Action 1- Right lateral shoulder Action 2- Left T2 Action 2- Right C6 Action 3- Left T4 Action 3- Right T10 PT-OP-F Manual Assessment Start: 03/05/24 16:57 Freq: Status: Active Protocol: Document 03/06/24 13:02 SAK (Rec: 03/06/24 17:03 SAK [id number]) Manual Assessments Joint Mobility Assessment Joint Mobility Assessment decreased inferior and posterior glide right GH PT-OP-H Neuro Start: 03/05/24 16:57 Freq: Status: Active Protocol: Document 03/06/24 13:02 SAK (Rec: 03/06/24 17:03 SAK [id number]) Sensation Evaluation Gross Sensation Gross Sensation WNL PT-OP-J Posture/Palpation/Skin Start: 03/05/24 16:57 Freq: Status: Active Protocol: Document 03/06/24 13:02 SAK (Rec: 03/06/24 13:51 SAK [id number]) Posture Evaluation Position Sitting Head/C-Spine Posture Forward Head T-Spine Posture Increased Kyphosis Shoulder Posture (L) Rounded,(R) Rounded Scapula Posture (L) Neutral,(R) Neutral Comments Posture Comments Sternoclavicular joint right posterior related to left. Palpation Assessment Location rc Palpation Details min tenderness PT-OP-K Range of Motion Start: 03/05/24 16:57 Freq: Status: Active Protocol: Document 03/06/24 13:02 SAK (Rec: 03/06/24 17:03 SAK [id number]) Cervical Spine Range of Motion Cervical Spine Active Flexion 55 Rotation Left 55 Rotation Right 60 Lateral Flexion Left 25 Lateral Flexion Right 20 ROM Limitations Soft Tissue Tightness Shoulder Goniometric Range of Motion Shoulder Right Flexion 165 Abduction 170 External Rotation at 45 degrees 80 Abduction Internal Rotation Behind Back (text) T4 Left Shoulder ROM WFL Yes Internal Rotation Behind Back (text) T4 PT-OP-L Special Tests Start: 03/05/24 16:57 Freq: Status: Active Protocol: Document 03/06/24 13:02 SAK (Rec: 03/06/24 17:03 SAK [id number]) Special Tests Shoulder Special Tests Russo Denis Impingement Test Results + Elevation Impingement Test Results + Drop Arm Rotator Cuff Test Results - PT-OP-M Strength Start: 03/05/24 16:57 Freq: Status: Active Protocol: Document 03/06/24 13:02 SAK (Rec: 03/06/24 17:03 SAK [id number]) Shoulder Strength Shoulder Manual Muscle Testing Right Flexion 4+ Good+ Extension 4- Good- Abduction (C5) 4+ Good+ External Rotation 4- Good- Internal Rotation 4- Good- Left Flexion 5 Normal Extension 4 Good Abduction (C5) 5 Normal External Rotation 4 Good Internal Rotation 4+ Good+ Elbow/Forearm Strength Elbow and Forearm Manual Muscle Testing Right Flexion (C6) 4+ Good+ Extension (C7) 5 Normal Left Flexion (C6) 5 Normal Extension (C7) 5 Normal PT-OP-Q Treatments Start: 03/05/24 16:57 Freq: Status: Active Protocol: Document 03/11/24 08:12 [facility] (Rec: 03/11/24 09:08 [facility] [id number]) Gym Equipment Shuttle Recovery lat pull Details next session, include scap isolation Therapeutic Exercises Supine Exercises serratus punch Resistance 4#-10# Reps/Minutes 15x Comments (don't feel like I'm getting a lot out of this one) lat stretch Equipment Used foam roller Reps/Minutes 5x AROM, then 30 sec stretch pec stretch Supine Exercise Name major (minor not tight) Equipment Used foam roller Reps/Minutes 5x AROM, then 30 sec stretch Prone Exercises T, Y Equipment Used 75 Cm ball Reps/Minutes 10x2 Comments cues for scapular act T, upward scap rot Y Sidelying Exercises open book Sidelying Exercise Name added to HEP Reps/Minutes 5x Comments cues for deep breath in/out end range, segmental movement Standing Exercises wall push up Reps/Minutes 10x2 Comments cues for jose rafael-free ROM Sh IR, ER Standing Exercise Name HEP Equipment Used L3 TB Reps/Minutes 10x2 wall posture Reps/Minutes 4 min Comments cues for start with core, rotate shoulders, press back of hands against wal Other Exercises cat/cow Reps/Minutes 5x Self-Care/Home Management Treatment Education Patient Education Home Exercise Program,Pain Management,Posture Other Education updated HO PT-OP-T Assessment and Plan Start: 03/05/24 16:57 Freq: Status: Active Protocol: Document 03/11/24 08:12 [facility] (Rec: 03/11/24 09:08 [facility] [id number]) Physical Therapy Assessment Goals Three Impairment weakness right shoulder Short Term Goal (STG) Instruct in individualized progressive HEP for purposes of strengthening right shoulder girdle STG Duration 03/22/24 Half-Way Goal (LTG) Patient to be independent and compliant with HEP and demonstrate improvement in right shoulder strength all muscle groups to 5/5 to help him return to prior level of right shoulder function LTG Duration 04/20/24 Two Impairment ROM; decreased ability to reach behind his back Half-Way Goal (LTG) Improve patient ability to reach behind his back to same as left as measure of improved function right shoulder LTG Duration 04/20/24 One Impairment activity intolerance Half-Way Goal (LTG) Patient will be able to resume swimming, throwing, and yoga without an increase in pain LTG Duration 04/20/24 Progress Towards Goals Progress Towards Goals Progressing Toward Goals Assessment Summary Assessment Patient compliant to HEP, reports mostly muscle fatigue, not pain. States went swimming but forgot to do usual warm-up first. Added open book to HEP; tight spinal rotation, pec major. Added therapy ball to prone ex, noted mild winging R scapula with fatigue, improved with manual facil. Encouraged warm -up prior to ex especially overhead, also start with breastroke or crawl with smaller reach as part of swim warm up. Physical Therapy Plan Frequency and Duration Frequency of Treatment 2x/Week Duration of treatment (weeks) 6 Plan of Care Start Date 03/06/24 Plan of Care End Date 04/20/24 Therapeutic Interventions Therapeutic Interventions Home Exercise Program,Joint Mobilizations,Manual Therapy, Patient/Caregiver Education, Self-Care/Home Management,Soft Tissue Mobilization,Taping, Therapeutic Activities, Therapeutic Exercises Modalities Cold Pack/Ice Massage,Electric Stimulation,Hot Packs, Infrared Therapy,Iontophoresis ,Ultrasound Next Visit Focus/Plan Next Note Type Treatment Note Next Visit Plan Start cat/cow, open book, add bird dog as keyonna. Progress shoulder strengthening as keyonna including flies, overhead press, chest press, lat pull as keyonna, cosider manual pecs, periscap, GH inf and post glide.
--- NOTE | 2024-08-28 14:05 | PT.OPDS ---
Current Diagnoses Other chronic pain (03/11/24) Pain in right shoulder (03/11/24) Visit Care Team Role Provider Type Shiv Del Angel DO Attending Provider Physician Family Provider Primary Care Provider Referring Provider Specialty: Family Practice Address: [address] [place] [address], [facility] Email: Visit Number Visit Number 2 Discharge Summary PT-OP-B Current Condition Start: 03/05/24 16:57 Freq: Status: Active Protocol: Document 03/11/24 08:12 SAK (Rec: 03/11/24 09:08 [facility] [id number]) Current Condition History of Current Condition Onset Date 2 years Current Complaints right shoulder pain History of Current gradual onset, possibly due to throwinhg baseball or Condition footballhard. Painful yoga, difficult going from plank down to pushup. In past would just modify activities and it would mostly go away. For past month doing light yoga, stopped doing lap swimming, still not improving, stopped doing weight lifting. Primarily freestyle, does some other strokes. Usual exercise, running, weights, yoga, swim. Denies n/t. Also reports when doing bicep curls was painful in neutral position; able to do carefully without pain thumbs up position. Prior Treatments and doesnt think any imaging for shoulder. No other Tests treatment. PT-OP-C Subjective Start: 03/05/24 16:57 Freq: Status: Active Protocol: Document 03/11/24 08:12 SAK (Rec: 03/11/24 09:08 [facility] [id number]) OP-PT Subjective Patient Comments Patient Comments Swam for the first time on Sunday, took it easy, at the time felt it, yesterday sore (maybe miuscle soreness). Has done the exercises twice without difficulty. PT-OP-E Functional Tests Start: 03/05/24 16:57 Freq: Status: Active Protocol: Document 03/06/24 13:02 SAK (Rec: 03/06/24 17:03 [facility] [id number]) Functional Tests Apley's Scratch Test Action 1- Left posterior shoulder Action 1- Right lateral shoulder Action 2- Left T2 Action 2- Right C6 Action 3- Left T4 Action 3- Right T10 PT-OP-F Manual Assessment Start: 03/05/24 16:57 Freq: Status: Active Protocol: Document 03/06/24 13:02 SAK (Rec: 03/06/24 17:03 SAK [id number]) Manual Assessments Joint Mobility Assessment Joint Mobility decreased inferior and posterior glide right GH Assessment PT-OP-H Neuro Start: 03/05/24 16:57 Freq: Status: Active Protocol: Document 03/06/24 13:02 SAK (Rec: 03/06/24 17:03 SAK [id number]) Sensation Evaluation Gross Sensation Gross Sensation WNL PT-OP-J Posture/Palpation/Skin Start: 03/05/24 16:57 Freq: Status: Active Protocol: Document 03/06/24 13:02 SAK (Rec: 03/06/24 13:51 SAK [id number]) Posture Evaluation Position Sitting Head/C-Spine Posture Forward Head T-Spine Posture Increased Kyphosis Shoulder Posture (L) Rounded,(R) Rounded Scapula Posture (L) Neutral,(R) Neutral Comments Posture Comments Sternoclavicular joint right posterior related to left. Palpation Assessment Location rc Palpation Details min tenderness PT-OP-K Range of Motion Start: 03/05/24 16:57 Freq: Status: Active Protocol: Document 03/06/24 13:02 SAK (Rec: 03/06/24 17:03 SAK [id number]) Cervical Spine Range of Motion Cervical Spine Active Flexion 55 Rotation Left 55 Rotation Right 60 Lateral Flexion Left 25 Lateral Flexion 20 Right ROM Limitations Soft Tissue Tightness Shoulder Goniometric Range of Motion Shoulder Right Flexion 165 Abduction 170 External Rotation at 80 45 degrees Abduction Internal Rotation T4 Behind Back (text) Left Shoulder ROM WFL Yes Internal Rotation T4 Behind Back (text) PT-OP-L Special Tests Start: 03/05/24 16:57 Freq: Status: Active Protocol: Document 03/06/24 13:02 SAK (Rec: 03/06/24 17:03 SAK [id number]) Special Tests Shoulder Special Tests Russo Denis Impingement Test Results + Elevation Impingement Test Results + Drop Arm Rotator Cuff Test Results - PT-OP-M Strength Start: 03/05/24 16:57 Freq: Status: Active Protocol: Document 03/06/24 13:02 SAK (Rec: 03/06/24 17:03 SAK [id number]) Shoulder Strength Shoulder Manual Muscle Testing Right Flexion 4+ Good+ Extension 4- Good- Abduction (C5) 4+ Good+ External Rotation 4- Good- Internal Rotation 4- Good- Left Flexion 5 Normal Extension 4 Good Abduction (C5) 5 Normal External Rotation 4 Good Internal Rotation 4+ Good+ Elbow/Forearm Strength Elbow and Forearm Manual Muscle Testing Right Flexion (C6) 4+ Good+ Extension (C7) 5 Normal Left Flexion (C6) 5 Normal Extension (C7) 5 Normal PT-OP-T Assessment and Plan Start: 03/05/24 16:57 Freq: Status: Active Protocol: Document 08/28/24 14:05 [facility] (Rec: 08/28/24 14:05 [facility] Laptop) Physical Therapy Plan Discharge Physical Therapy Discharge Reasons No Longer Attending PT
== END 2024-08-29 15:11 | disposition home or self-care (01) ==
LOC: PHYS 08:15
PROVIDERS: Family Provider Family Medicine; PCP Family Medicine; Referring Provider Family Medicine; Visit Provider Family Medicine
DX: M25.511 Pain in right shoulder (principal); G89.29 Other chronic pain
CPT/HCPCS: 97110; 97161; 97535